=== PATIENT | female | born 1980 | race African-American/Black ===

== ENCOUNTER 2018-09-28 13:05 | Emergency (ER) | payer BC ==
[~2018-09-28] VITALS: Ht 154.9 cm; Wt 117.9 kg
[~2018-09-28 13:05] MED LIST: BACTRIM-DS1 EA ORAL; CEPHALEXIN500 MG ORAL; CIPRO500 MG PO; IBUPROFEN600 MG ORAL; IBUPROFEN600 MG PO; IBUPROFEN800 MG ORAL; NKM; NORCO 5-325 TA1 EACH ORAL; NORCO 5-325 TA1 EACH PO; ROBAXIN-750750 MG PO
--- NOTE | 2018-09-28 13:31 | NUR ---
ED Nurse Note: pt walked in c/o left knee pain x1 wk, pt reports she fell in the shower and having pain since then, reports increase pain when she sits for prolonged time. noted swelling and tenderness on left knee, no obvious deformity noted, will cont monitor. cms intact BLE.
[2018-09-28 13:33] VITALS: BP 124/75
--- NOTE | 2018-09-28 13:37 | Emergency Room Report ---
History of Present Illness General Chief Complaint: Multiple Trauma/Fall Source: Patient Present Illness HPI A week ago the patient was taking a bath. When she was getting out she slipped and did the splits. Her left knee was twisted inwards. Since that time she's had pain and swelling on the inside of the knee. It's gotten worse in the last 24-48 hrs. She's been taking Aleve muscle medication. The last time she took it was last night. It has been helping with the pain. She is able to ambulate at this time. She denies higher injury to the knee. There is no fever or chills. The pain is rated 7/10 and aching when she is walking. She has some trouble sleeping last night due to the pain. Her last period was last week. She denies shortness of breath, sore throat, nausea, vomiting, diarrhea, dysuria or rashes. Cataract surgery 09/17. 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 Last Menstrual Period: 08/2018 Now: No : 2 Para: 2 Reviewed Nursing Documentation: PMH: Agreed; PSxH: Agreed Nursing Documentation-PMH Past Medical History: No Stated History Review of Systems All Other Systems: negative except mentioned in HPI Physical Exam Vital Signs Date Time Temp Pulse Resp B/P (MAP) Pulse Ox O2 Delivery O2 Flow Rate FiO2 09/28/18 13:19 98.1 96 18 97 Room Air 09/28/18 13:33 124/75 Sp02 EP Interpretation: reviewed, normal General Appearance: well appearing, no apparent distress, GCS 15 Head: normocephalic, atraumatic Eyes: bilateral eye normal inspection, bilateral eye PERRL, bilateral eye EOMI ENT: hearing grossly normal, normal voice, moist mucus membranes Neck: full range of motion, supple Respiratory: no respiratory distress, speaking full sentences Cardiovascular #1: regular rate, rhythm, no edema Cardiovascular #2: 2+ radial (L) Gastrointestinal: normal inspection, overweight Musculoskeletal: no calf tenderness, swelling - Medial left knee, other - Medial ligament minimal laxity with tenderness with his stressing, no significant drawer sign. Apley's compression negative Neurologic: alert, oriented x3, other - Distal neurovascular left , grossly normal Psychiatric: mood/affect normal Skin: normal inspection, no rash, other - Left knee no warmth or Medical Decision Making Diagnostic Impression: Primary Impression: Left knee sprain Qualified Codes: S83.412A - Sprain of medial collateral ligament of left knee , initial encounter ER Course Patient presents week after left knee injury. Differential includes sprain, cartilage injury and fracture. My [place] knee rules fractures less likely. However x-rays are indicated. The patient will also be given Motrin and an Nils wrap. Xrays unremarkable. Nils applied by me - tension excellent and position good. Distal neurovasc exam normal as checked by me. Improved with Motrin. Discussed treatment plan with patient. Patient stable for outpatient observation and treatment. Other X-Ray Diagnostic Results Other X-Ray Diagnostic Results : X-Ray ordered: Left knee # of Views/Limited Vs Complete: 3 View Indication: Pain EP Interpretation: Yes Interpretation: no dislocation, no soft tissue swelling, no fractures Impression: No acute disease Electronically Signed by: Electronically signed by Boni Rivero MD Last Vital Signs Date Time Temp Pulse Resp B/P (MAP) Pulse Ox O2 Delivery O2 Flow Rate FiO2 09/28/18 14:30 98.0 85 19 132/85 99 Room Air Status: improved Disposition: HOME, SELF-CARE Condition: Improved Scripts Tramadol Hcl* (ULTRAM*) 50 Mg Tablet 50 MG ORAL Q6H PRN for For Pain, #10 TAB 0 Refills Prov: Boni Rivero MD 09/28/18 Ibuprofen* (MOTRIN*) 600 Mg Tablet 600 MG ORAL Q6H PRN for For Pain, #20 TAB Prov: Boni Rivero MD 09/28/18 Boni Rivero MD September 28, 2018 13:37
--- NOTE | 2018-09-28 13:55 | NUR ---
ED Nurse Note: report given to DAGO mitchell and endorsed care.
[2018-09-28] MEDS ORDERED: TRAMADOL HCL50 MG ORAL (14:25)
[2018-09-28] MEDS ORDERED: IBUPROFEN600 MG ORAL (14:25)
[2018-09-28 14:30] VITALS: BP 132/85
--- NOTE | 2018-09-28 14:30 | NUR ---
ER DISCHARGE NOTE: Patient is cleared to be discharged per ERMD, pt is aox4, on room air, with stable vital signs. pt was given dc and prescription instructions, pt was able to verbalize understanding, pt id band removed. pt is able to ambulate with steady gait. pt took all belongings.ED Nurse Note:
--- NOTE | 2018-09-29 11:50 | Diagnostic Imaging Report ---
Indication: 11 3 views of the left knee were obtained. Findings: No acute fracture, malalignment, or joint effusion are identified. Joint space is relatively well-maintained. There is narrowing and subchondral lucencies involving the patellofemoral joint. Impression: Negative for acute injury. Patellofemoral joint arthrosis
== END 2018-09-28 15:28 | disposition home or self-care (01) ==
LOC: EMR 15:00
DX: S83.412A Sprain of medial collateral ligament of left knee, initial encounter (principal); W18.2XXA Fall in (into) shower or empty bathtub, initial encounter; Y92.9 Unspecified place or not applicable
CPT/HCPCS: 99283